=== PATIENT | female | born 1950 | race Caucasian/White ===

== ENCOUNTER 2020-05-31 10:13 | Day surgery (SDC) | payer MEDICARE ==
[2020-05-18 12:53] LABS: BASOPHILS # (AUTO) 0.1 X10'3 (0-0.2); EOSINOPHILS # (AUTO) 0.2 X10'3 (0-0.9); EOSINOPHILS % (AUTO) 2.7 % (0-6); LYMPHOCYTES # (AUTO) 1.1 X10'3 (1.1-4.8); LYMPHOCYTES % (AUTO) 13.1 % (21-51); MEAN CORPUSCULAR HEMOGLOBIN 30.3 PG (27.0-31.0); MEAN CORPUSCULAR HGB CONC 33.6 g/dL (33.0-36.5); MEAN CORPUSCULAR VOLUME 90.1 FL (78-98); MEAN PLATELET VOLUME 7.9 FL (7.4-10.4); MONOCYTES # (AUTO) 0.6 X10'3 (0-0.9); MONOCYTES % (AUTO) 7.5 % (2-12); NEUTROPHILS # (AUTO) 6.3 X10'3 (1.8-7.7); NEUTROPHILS % (AUTO) 75.7 % (42-75); PRE OP HEMATOCRIT 41.2 % (35.0-45.0); PRE OP HEMOGLOBIN 13.8 g/dL (12.0-16.0); PRE OP PLATELET COUNT 148 X10'3 (140-440); RED BLOOD COUNT 4.57 X10'6 (4.20-5.60); RED CELL DISTRIBUTION WIDTH 13.8 % (11.5-14.5)
[2020-05-18 13:05] LABS: ALBUMIN 3.4 G/DL (3.4-5.0); ALBUMIN/GLOBULIN RATIO 0.8 (1.1-1.5); ALKALINE PHOSPHATASE 372 IU/L (46-116); BLOOD UREA NITROGEN 41 MG/DL (7-18); BUN/CREATININE RATIO 22.2 (6.6-38.0); CALCIUM 9.2 MG/DL (8.5-10.1); CHLORIDE 104 MMOL/L (99-107); CREATININE 1.85 MG/DL (0.40-0.90); PRE OP ANION GAP 2 (8-16); PRE OP AST 30 U/L (10-37); PRE OP BILIRUB, TOTAL 0.4 MG/DL (0.0-1.0); PRE OP POTASSIUM 4.7 MMOL/L (3.4-5.1); PRE OP SODIUM 137 MMOL/L (135-145); TOTAL CARBON DIOXIDE 30.9 MMOL/L (24-32); TOTAL PROTEIN 7.5 G/DL (6.4-8.2); eGFR 27 ML/MIN
[2020-05-18 13:12] LABS: PRE OP GLUCOSE 325 MG/DL (70-104)
[2020-05-18 13:13] LABS: PRE OP ALT 84 U/L (30-65)
[~2020-05-31] VITALS: Ht 167.6 cm; Wt 122.6 kg
[~2020-05-31 10:13] MED LIST: ASPI-1265 PO; ATEN50TA PO; BENA5TAB39 PO; DOCUMENT DATE & TIME OF BETA-BLOCKER PO ONE; FURO-150 PO; GLIM4TAB7 PO; INSU200I SQ; LEVO100T PO; NORT25CA5 PO; SIMV40TA PO; TRAM50TA2 PO; [UNRECOGNIZED DRUG - OTHER] SQ; ceFAZolin inj. 3,000 MG in normal saline 100ml IV soln 100 ML IV ONE; famotidine 20mg tablet PO ONE; ringers solution, lacted 1,000 ML IV SCH; vancomycin 1,500 MG in NS 300ml IV soln IV ONE
[2020-05-31 10:25] VITALS: BP 139/80
[2020-05-31] MEDS ORDERED: LIDOcaine 1% (10mg/ml) 2ml vial ONE (10:42)
[2020-05-31] MEDS ORDERED: ondansetron/PF 4mg/2ml inj IV PRN (12:55)
[2020-05-31] MEDS ORDERED: meperidine/PF 25mg/ml syringe IV PRN ×3 (12:55)
[2020-05-31] MEDS ORDERED: morphine 2 MG/ML inj. syringe IV PRN (12:55)
[2020-05-31] MEDS ORDERED: proCHLORperazine 10 MG/2 ml inj IV PRN (12:55)
[2020-05-31] MEDS ORDERED: ringers solution, lacted 1,000 ML IV SCH (12:55)
[2020-05-31] MEDS ORDERED: morphine 4 MG/ML inj SYRINge IV PRN (12:55)
[2020-05-31] MEDS ORDERED: BUPIVAcaine/PF 2.5 mg/ml (0.25%) 30ml vial ONE ×2 (13:21→14:57)
[2020-05-31] MEDS ORDERED: methylPREDNISolone sod succ 125mg/2ml vial ONE (13:21)
[2020-05-31] MEDS ORDERED: BUPIVAcaine/PF 2.5mg/ml (0.25%) 10ml vial ONE (13:21)
[2020-05-31] MEDS ORDERED: BUPIVAcaine 0.5% inj/PF 30 ML ONE (13:28)
[2020-05-31] MEDS ORDERED: LIDOcaine 0.5% (5mg/ml) 50ml vial ONE (14:12)
[2020-05-31] MEDS ORDERED: fentaNYL/PF 50MCG/1 ML 2ML syringe ONE (14:19)
[2020-05-31] MEDS ORDERED: midazolam 2 mg/2 ml injection ONE (14:20)
[2020-05-31] MEDS ORDERED: propofol inj 20 ML IV ONE (14:51)
[2020-05-31] MEDS ORDERED: methylPREDNISolone sod succ 125mg/2ml vial IV ONE (15:00)
[2020-05-31 15:15] VITALS: BP 176/78
--- NOTE | 2020-05-31 15:15 | NUR ---
Received from [facility] via [facility], accompanied by Anesthesiologist DR DYE and report given by Anesthesiolgist. PATIENT A&OX4, DENIES PAIN, V/S WNL, NEUROVASCULAR CHECKS INTACT-ABLE TO MOVE FINGERS, PINK AND WARM, LEFT WRIST DRESSING-CDI, ELEVATED WITH ICE BAG APPLIED. 20G PIV R HAND.
[2020-05-31 15:20] VITALS: BP 164/80
[2020-05-31 15:30] VITALS: BP 174/86
[2020-05-31 15:40] VITALS: BP 191/94
[2020-05-31 15:50] VITALS: BP 169/73
--- NOTE | 2020-05-31 16:05 | NUR ---
PATIENT A&OX4, DENIES PAIN, V/S WNL, NEUROVASCULAR CHECKS INTACT-FINGERS ON LEFT HAND-PINK, WARM AND ABLE TO MOVE, SCD OFF, LEFT WRIST DRESSING-CDI ELEVATED WITH ICE BAG APPLIED. 20G R HAND D/C WITH NO COMPLICATIONS OBSERVED. I HAVE REVIEWED D/C INSTRUCTIONS WITH PATIENT AND FAMILY AND THEY HAVE VERBALIZED UNDERSTANDING. PATIENT D/C HOME WITH ALL BELONGINGS, FAMILY TO TRANSPORT.
== END 2020-05-31 16:05 | disposition home or self-care (01) ==
LOC: PAS 10:13
PROVIDERS: ATTEND Orthopaedic Surgery
DX: G56.02 Carpal tunnel syndrome, left upper limb (principal); G56.22 Lesion of ulnar nerve, left upper limb; G47.30 Sleep apnea, unspecified; E11.40 Type 2 diabetes mellitus with diabetic neuropathy, unspecified; E11.22 Type 2 diabetes mellitus with diabetic chronic kidney disease; I12.9 Hypertensive chronic kidney disease with stage 1 through stage 4 chronic kidney disease, or unspecified chronic kidney disease; N18.30 Chronic kidney disease, stage 3 unspecified; G89.4 Chronic pain syndrome; F32.9 Major depressive disorder, single episode, unspecified; E78.5 Hyperlipidemia, unspecified; E11.59 Type 2 diabetes mellitus with other circulatory complications; M17.11 Unilateral primary osteoarthritis, right knee; E66.01 Morbid (severe) obesity due to excess calories; Z68.41 Body mass index [BMI] 40.0-44.9, adult; Z88.8 Allergy status to other drugs, medicaments and biological substances; Z20.822 Contact with and (suspected) exposure to COVID-19; Z79.899 Other long term (current) drug therapy; Z90.49 Acquired absence of other specified parts of digestive tract; Z98.890 Other specified postprocedural states; Z96.652 Presence of left artificial knee joint; Z90.11 Acquired absence of right breast and nipple; Z79.84 Long term (current) use of oral hypoglycemic drugs; Z87.891 Personal history of nicotine dependence; Z85.3 Personal history of malignant neoplasm of breast; Z82.49 Family history of ischemic heart disease and other diseases of the circulatory system
CPT/HCPCS: 36415; 64719; 64721; 80053; 82948; 85025; 87635; A6222; J0690; J2001; J2250; J2704; J2930; J3010; J3370; J3490; J7040; A4215; A4618; A6449; J7120